=== PATIENT | male | born 1965 | race Caucasian/White ===

== ENCOUNTER 2020-08-31 10:59 | Outpatient (REF) | payer OTHER, SELFPAY | END 2020-08-31 11:00 | disposition home or self-care (01) | LOC: HO.BBR 10:59 | PROVIDERS: Visit Provider Internal Medicine | DX: Z13.89 Encounter for screening for other disorder (principal) ==

== ENCOUNTER 2020-10-12 12:55 | Outpatient (REF) | payer OTHER, SELFPAY | END 2020-10-12 12:56 | disposition home or self-care (01) | LOC: HO.BBR 12:55 | PROVIDERS: Visit Provider Internal Medicine | DX: Z13.89 Encounter for screening for other disorder (principal) ==

== ENCOUNTER 2020-12-09 14:58 | Outpatient (REF) | payer OTHER, SELFPAY | END 2020-12-09 14:59 | disposition home or self-care (01) | LOC: HO.BBR 14:58 | PROVIDERS: Visit Provider Internal Medicine | DX: Z13.89 Encounter for screening for other disorder (principal) ==

== ENCOUNTER 2021-01-20 13:02 | Outpatient (REF) | payer OTHER, SELFPAY | END 2021-01-20 13:03 | disposition home or self-care (01) | LOC: HO.BBR 13:02 | PROVIDERS: Visit Provider Internal Medicine | DX: Z13.89 Encounter for screening for other disorder (principal) ==

== ENCOUNTER 2021-06-06 13:26 | Outpatient (REF) | payer OTHER, SELFPAY | END 2021-06-06 13:27 | disposition home or self-care (01) | LOC: HO.BBR 13:26 | PROVIDERS: Visit Provider Internal Medicine | DX: Z13.89 Encounter for screening for other disorder (principal) ==

== ENCOUNTER 2022-08-13 15:33 | Outpatient (REF) | payer OTHER, SELFPAY | END 2022-08-13 15:34 | disposition home or self-care (01) | LOC: HO.BBR 15:33 | PROVIDERS: Visit Provider Internal Medicine | DX: Z13.89 Encounter for screening for other disorder (principal) ==

== ENCOUNTER 2022-10-11 15:03 | Outpatient (REF) | payer OTHER, SELFPAY | END 2022-10-11 15:04 | disposition home or self-care (01) | LOC: HO.BBR 15:03 | PROVIDERS: Visit Provider Internal Medicine | DX: Z13.89 Encounter for screening for other disorder (principal) ==

== ENCOUNTER 2024-04-16 11:10 | Outpatient (REF) | payer BC, SELFPAY ==
[2024-04-16 12:37] LABS: Ferritin 219 ng/mL (20-250)
== END 2024-04-16 11:11 | disposition home or self-care (01) ==
LOC: HO.BBR 11:10
PROVIDERS: PCP Internal Medicine; Visit Provider Internal Medicine
DX: E83.110 Hereditary hemochromatosis (principal)
CPT/HCPCS: 36415; 82728

== ENCOUNTER 2024-04-18 15:14 | Outpatient (REF) | payer BC, SELFPAY ==
[2024-04-21 10:13] LABS: Creatinine, 24Hr Urine 1.49 g/24 h (0.50-2.15); PEU-PROT/CRE Ratio mg/mg 0.066 (<0.100); PEU24-Albumin Urine 100 %; PEU24-Alpha 1 Globulin 0 %; PEU24-Alpha 2 Globulin 0 %; PEU24-Beta Globulin 0 %; PEU24-Gamma Globulin 0 %; Total Protein 24Hr Urine 99 mg/24 h (<150); Total Protein/Creat Ratio 24h 66 mg/g creat (<100)
== END 2024-04-18 15:15 | disposition home or self-care (01) ==
LOC: HO.LNP 15:14
PROVIDERS: Visit Provider Internal Medicine
DX: E85.9 Amyloidosis, unspecified (principal)
CPT/HCPCS: 82570; 84156; 84166; 86335

== ENCOUNTER 2024-07-09 10:52 | Outpatient (REF) | payer BC, SELFPAY | END 2024-07-09 10:53 | disposition home or self-care (01) | LOC: HO.BBR 10:52 | PROVIDERS: PCP Internal Medicine; Visit Provider Internal Medicine | DX: Z13.89 Encounter for screening for other disorder (principal) ==

== ENCOUNTER 2024-10-01 10:04 | Outpatient (REF) | payer BC, SELFPAY ==
--- OUTSIDE RECORDS SUMMARY | 2024-10-01 11:49 | XMS_ITS | Clinical Summary ---
Author Organization [facility] Address [address] [place] [phone] Phone Care Team Providers Care Senior Analytic Consultant Name Role Phone Telly Ybarra MD Primary Care Provider [phone] Allergies No known active allergies Medications OXcarbazepine (TRILEPTAL) 600 mg tablet Take 1 tablet (600 mg total) by mouth 2 times daily. 10/03/2023 Active lisinopril-hydr oCHLOROthiazide (PRINZIDE,ZESTO RETIC) 20-12.5 mg per tablet Take 0.5 tablets by mouth daily. 10/21/2023 Active famotidine (PEPCID) 20 mg tablet Take 1 tablet (20 mg total) by mouth daily. 11/01/2023 Active ALPRAZolam (Xanax) 0.25 mg tablet Take 1 tablet (0.25 mg total) by mouth. 04/23/2012 Active Surgical History Surgery Date Site/Laterality Comments ESOPHAGOGASTRODUODENOSCOPY COLONOSCOPY Medical History Medical History Date Comments Hypertension GERD (gastroesophageal reflux disease) Cirrhosis (CMS/HCC V24, CMS/HCC V28) Hepatitis C Social History Tobacco Use Types Packs/Day Years Used Date Smoking Tobacco: Former Cigarettes Q uit: 05/08/1989 Smokeless Tobacco: Never Tobacco Cessation:Counseling Given: Not Answered Alcohol Use Standard Drinks/Week Comments Never 0 (1 standard drink = 0.6 oz pur e alcohol) Interpersonal Safety Answer Date Record ed Physical Abuse 05/08/2024 Verbal Abuse 05/08/2024 Sex and Gender Information Value Date Recorded Sex Assigned at Male 05/08/2024 7:12 AM EST Legal Sex Male 2:03 PM EST Gender Identity Male 05/08/2024 7:12 AM EST Sexual Orientation Straight 05/08/2024 7: 12 AM EST Obstetrics History Last Filed Vital Signs Vital Sign Reading Time Taken Comments Blood Pressure 114/73 05/08/2024 8:46 AM EST Pulse 64 05/08/2024 8:46 AM EST Temperature 35.6 ??C (96 ??F) 05/08/2024 8:26 AM EST Respiratory Rate 11 05/08/2024 8:46 AM EST Oxygen Saturation 96% 05/08/2024 8:46 AM EST Inhaled Oxygen Concentration - - Weight 116 kg (255 lb) 05/08/2024 7:43 AM EST Height 185.4 cm (6' 1 ) 05/08/2024 7:43 AM EST Body Mass Index 33.64 05/08/2024 7:43 AM EST Plan of Treatment Health Maintenance Due Date Last Done Comments Pneumococcal Vaccine: 50+ Years (2 of 2 - PCV) 08/18/2007 08/17/2006 Pneumococcal Vaccine: Pediatrics (0 to 5 Years) and At-Risk Patients (6 to 64 Years) (2 of 2 - PCV) 08/18/2007 08/17/2006 Depression Screening 05/16/2022 HIV Screening 05/16/2022 Hepatitis C Screening 05/16/2022 Social Influencers of Health Screening 05/16/2022 RSV Immunization Adult Patients (1 - Risk 60-74 years 1-dose series) 2023 COVID-19 Vaccine ( season) 2024 03/21/2023, 03/22/2022, 06/15/2021, Additional history exists Hypertension/CHF/CAD Annual BMP Blood Test 10/15/2024 10/16/2023, 06/07/2022, 05/29/2022, Additional history exists Cholesterol Screening (Lipid Panel) 10/15/2028 10/16/2023 Colorectal Cancer Screening: Colonoscopy 09/13/2030 09/13/2020 DTaP,Tdap,and Td Vaccines (4 - Td or Tdap) 09/18/2032 09/18/2022, 10/18/2011, 11/15/2004 Hepatitis A Vaccines Aged Out 01/28/2012, 05/03/2011, 10/31/2010 No longer eligible based on patient's age to complete this topic Hepatitis B Vaccines Completed 01/28/2012, 05/03/2011, 10/31/2010 Zoster Vaccines Completed 05/11/2018, 03/07/2018 MMR Vaccines Aged Out 05/06/2019, 04/08/2019 No lo nger eligible based on patient's age to complete this topic Influenza Vaccine Completed 02/27/2024, , 02/13/2022, Additional history exists HIB Vaccines Aged Out No longer eligi ble based on patient's age to complete this topic HPV Vaccines Aged Out No longer eligi ble based on patient's age to complete this topic IPV Vaccines Aged Out No longer eligi ble based on patient's age to complete this topic Meningococcal ACWY Vaccine Aged Out N o longer eligible based on patient's age to complete this topic Meningococcal B Vaccine Aged Out No l onger eligible based on patient's age to complete this topic RSV Immunization Patients Under 20 months Aged Out No longer eligible based on patient's age to complete this topic Varicella Vaccines Aged Out No longer eligible based on patient's age to complete this topic Procedures Procedure Name Priority Date/Time Associated Diagnosis Comments EXTERNAL COLONOSCOPY REPORT 09/13/2020 from Last 3 Months or Most Recently Relevant to Health Maintenance Results * External Colonoscopy Report (09/13/2020) Anatomical Region Laterality Modality Endoscopy us Provider Onbase GI~PROCEDURE ORDERABLES Final Result from Last 3 Months or Most Recently Relevant to Health Maintenance Insurance [facility] Care Teams Senior Analytic Consultant Relationship Specialty Start Date End Date Telly Ybarra MD [address] [place] [address] PCP - General Internal Medicine 05/07/24
== END 2024-10-01 10:05 | disposition home or self-care (01) ==
LOC: HO.BBR 10:04
PROVIDERS: Visit Provider Internal Medicine
DX: Z13.89 Encounter for screening for other disorder (principal)